=== PATIENT | female | born 1935 | race Caucasian/White ===

== ENCOUNTER → 2018-02-17 | Outpatient (CLI) | payer MEDICARE, BC ==
[~2018-02-17] MED LIST: 00186-0370-20 IH; ASPIR-LOW81 MG PO; ASPIRIN 81M81 MG/TA2 PO; LUTEIN20 MG PO; NO HOME MEDICATIONS; NORCO 325 MG-51 TAB PO; ONE DAILY1 TA2 PO; PROAIR HFA0.09 MG/AC IH; RT SPIRIVA18 MCG IH; SINGULAIR 110 MG/TAB PO; VENTOLIN0.09 MG IH; VITAMIN D 400400 IU PO; VITAMIN D1000 IU PO; ZYRTEC 10MG10 MG PO
== END ==
LOC: COL.VAS 11:00
DX: I08.3 Combined rheumatic disorders of mitral, aortic and tricuspid valves (principal)

== ENCOUNTER → 2018-12-08 | Outpatient (CLI) | payer MEDICARE, BC | LOC: MC.RAD 14:12 | DX: Z12.31 Encounter for screening mammogram for malignant neoplasm of breast (principal) ==

== ENCOUNTER 2019-01-13 08:36 | Emergency (ER) | payer MEDICARE, BC ==
[~2019-01-13] VITALS: Ht 162.6 cm; Wt 65.9 kg
[2019-01-13 08:40] VITALS: TEMP 97.4
[2019-01-13 09:28] LABS: BASO # 0.1 (0.0-0.2); BASO % 0.9 % (0.0-2.0); EOS # 0.2 (0.0-0.7); EOS % 2.7 % (0-4.0); GRAN # 3.3 (1.4-6.5); GRAN % 59.3 % (42.2-75.2); HEMATOCRIT 44.2 % (37.0-47.0); HEMOGLOBIN 14.5 g/dl (12.5-16.0); LYMPH # 1.6 (1.2-3.4); LYMPH % 28.7 % (20.0-51.0); MEAN CELL VOLUME 92 fl (80.0-100.0); MEAN CORPUSCULAR HEMOGLOBIN 30 pg (27.0-31.0); MEAN CORPUSCULAR HGB CONC 33 g/dl (33.0-37.0); MEAN PLATELET VOLUME 8.3 fl (7.4-10.4); MONO # 0.4 (0.1-0.6); PLATELET COUNT 262 K/mm3 (130-400); REDCELL DISTRIBUTION WIDTH-CV 12.6 % (11.5-14.5)
[2019-01-13 09:41] LABS: ALANINE AMINOTRANSFERASE 13 U/L (9-52); ALKALINE PHOSPHATASE 75 U/L (50-136); ANION GAP 10 mmol/L (7-16); AST,SGOT 23 U/L (15-37); BILIRUBIN,TOTAL 0.5 mg/dL (0.0-1.0); BLOOD UREA NITROGEN 14 mg/dL (7-17); CALCIUM 9.3 mg/dL (8.4-10.2); CARBON DIOXIDE 25 mmol/L (22-30); CHLORIDE 103 mmol/L (98-107); CREATININE, serum 0.73 (0.52-1.25); GLUCOSE 100 mg/dL (74-106); POTASSIUM 3.9 mmol/L (3.4-5.0); SODIUM 138 mmol/L (137-145)
[2019-01-13 09:47] LABS: C-REACTIVE PROTEIN < 0.5 mg/dL (0.0-0.9)
[2019-01-13] MEDS ORDERED: PREDNISONE20 MG PO (10:02)
[2019-01-13] MEDS ORDERED: PROAIR HFA0.09 MG/AC IH (10:05)
[2019-01-13 10:25] VITALS: BP 157/88; PULSE 69
== END 2019-01-13 10:25 | disposition home or self-care (01) ==
LOC: COL.ER 08:36
PROVIDERS: Family Medicine
DX: J45.901 Unspecified asthma with (acute) exacerbation (principal)
CPT/HCPCS: J2930

== ENCOUNTER 2019-05-31 22:02 | Emergency (ER) | payer MEDICARE, BC ==
[~2019-05-31] VITALS: Ht 157.5 cm; Wt 63.6 kg
[~2019-05-31 22:02] MED LIST changes: +PREDNISONE20 MG PO
[2019-05-31 22:05] VITALS: TEMP 97.5
[2019-05-31 23:18] LABS: BASO # 0.1 (0.0-0.2); BASO % 0.6 % (0.0-2.0); EOS # 0.2 (0.0-0.7); EOS % 1.8 % (0-4.0); GRAN # 6.6 (1.4-6.5); GRAN % 70.1 % (42.2-75.2); HEMATOCRIT 43.8 % (37.0-47.0); HEMOGLOBIN 14.3 g/dl (12.5-16.0); MEAN CELL VOLUME 93 fl (80.0-100.0); MEAN CORPUSCULAR HEMOGLOBIN 31 pg (27.0-31.0); MEAN CORPUSCULAR HGB CONC 33 g/dl (33.0-37.0); MEAN PLATELET VOLUME 8.4 fl (7.4-10.4); MONO # 0.6 (0.1-0.6); MONO % 6.1 % (1.7-9.3); PLATELET COUNT 296 K/mm3 (130-400); RED BLOOD COUNT 4.69 M/mm3 (4.10-5.30); REDCELL DISTRIBUTION WIDTH-CV 12.6 % (11.5-14.5)
[2019-05-31 23:32] LABS: ALANINE AMINOTRANSFERASE 17 U/L (9-52); ALBUMIN 4.6 gm/dL (3.5-5.0); ALCOHOL(ethanol),MEDICAL 173 mg/dL; ALKALINE PHOSPHATASE 75 U/L (50-136); ANION GAP 12 mmol/L (7-16); AST,SGOT 33 U/L (15-37); BILIRUBIN,TOTAL 0.2 mg/dL (0.0-1.0); BLOOD UREA NITROGEN 18 mg/dL (7-17); CALCIUM 9.2 mg/dL (8.4-10.2); CARBON DIOXIDE 25 mmol/L (22-30); CHLORIDE 101 mmol/L (98-107); CREATININE, serum 0.79 (0.52-1.25); GLUCOSE 108 mg/dL (74-106); POTASSIUM 3.7 mmol/L (3.4-5.0); SODIUM 138 mmol/L (137-145); TOTAL PROTEIN 7.6 gm/dL (6.4-8.2)
[2019-05-31 23:41] LABS: C-REACTIVE PROTEIN < 0.5 mg/dL (0.0-0.9); TROPONIN-I < 0.012 ng/mL (0.000-0.035)
[2019-05-31 23:54] LABS: COLLECTION METHOD CLEAN CATCH
[2019-06-01 00:03] LABS: MUCOUS Present /lpf; PH 7 (5-8); SQUAMOUS EPITHELIAL None Seen /hpf; URINE APPEARANCE Clear; URINE BACTERIA None Seen /hpf; URINE BILIRUBIN Negative (NEGATIVE); URINE BLOOD Negative (NEGATIVE); URINE COLOR Straw; URINE GLUCOSE Negative (NEGATIVE); URINE KETONE Negative (NEGATIVE); URINE LEUKOCYTE ESTERASE Negative (NEGATIVE); URINE NITRATE Negative (NEGATIVE); URINE PROTEIN(semi-quant) Negative (NEGATIVE); URINE RBC 0-2 /hpf; URINE UROBILINOGEN Negative (NEGATIVE)
[2019-06-01 00:13] VITALS: BP 186/88; PULSE 81
== END 2019-06-01 00:13 | disposition left against medical advice (07) ==
LOC: COL.ER 22:02
PROVIDERS: Emergency Medicine
DX: S69.92XA Unspecified injury of left wrist, hand and finger(s), initial encounter (principal); R55 Syncope and collapse; M54.5 Low back pain; I10 Essential (primary) hypertension; J44.9 Chronic obstructive pulmonary disease, unspecified; W19.XXXA Unspecified fall, initial encounter
CPT/HCPCS: J7030

== ENCOUNTER → 2021-08-15 | Outpatient (CLI) | payer MEDICARE, BC | LOC: COL.RAD 12:53 | DX: M54.50 Low back pain, unspecified (principal); M25.551 Pain in right hip | CPT/HCPCS: G0260; J3301 ==

== ENCOUNTER → 2021-10-03 | Outpatient (RCR) | payer MEDICARE, BC | END | disposition home or self-care (01) | LOC: WSPT → WSC 09-23 15:00 → WSPT 09-26 15:00 | DX: M53.3 Sacrococcygeal disorders, not elsewhere classified (principal) ==

== ENCOUNTER 2021-11-01 15:00 | Outpatient (RCR) | payer MEDICARE, BC | END 2021-11-02 | disposition home or self-care (01) | LOC: WSC | DX: M53.3 Sacrococcygeal disorders, not elsewhere classified (principal) ==

== ENCOUNTER → 2021-11-04 | Outpatient (CLI) | payer MEDICARE, BC | LOC: MHCPAIN 12:48 | DX: M47.816 Spondylosis without myelopathy or radiculopathy, lumbar region (principal); M54.50 Low back pain, unspecified; M53.3 Sacrococcygeal disorders, not elsewhere classified ==

== ENCOUNTER → 2021-11-18 | Outpatient (CLI) | payer MEDICARE, BC | LOC: MHCPAIN 13:15 | DX: M47.816 Spondylosis without myelopathy or radiculopathy, lumbar region (principal); M54.50 Low back pain, unspecified; M53.3 Sacrococcygeal disorders, not elsewhere classified ==

== ENCOUNTER 2021-11-27 14:15 | Outpatient (RCR) | payer MEDICARE, BC | END 2021-12-03 | disposition home or self-care (01) | LOC: WSC | DX: M53.3 Sacrococcygeal disorders, not elsewhere classified (principal) ==

== ENCOUNTER 2021-12-26 09:00 | Outpatient (RCR) | payer MEDICARE, BC | END 2022-01-02 | disposition home or self-care (01) | LOC: WSC | DX: M53.3 Sacrococcygeal disorders, not elsewhere classified (principal) ==

== ENCOUNTER → 2022-01-15 | Outpatient (CLI) | payer MEDICARE, BC | LOC: MHCPAIN 13:45 | DX: M54.50 Low back pain, unspecified (principal); M79.662 Pain in left lower leg; M41.86 Other forms of scoliosis, lumbar region ==

== ENCOUNTER → 2022-01-15 | Outpatient (CLI) | payer MEDICARE, BC | LOC: COL.RAD 14:51 | DX: M41.86 Other forms of scoliosis, lumbar region (principal); M51.36 Other intervertebral disc degeneration, lumbar region; M47.816 Spondylosis without myelopathy or radiculopathy, lumbar region ==

== ENCOUNTER 2022-01-29 09:00 | Outpatient (RCR) | payer MEDICARE, BC | END 2022-02-02 | disposition home or self-care (01) | LOC: WSPT | DX: M53.3 Sacrococcygeal disorders, not elsewhere classified (principal) ==

== ENCOUNTER → 2022-02-14 | Outpatient (CLI) | payer MEDICARE, BC | LOC: WSC 12:54 → MHCPAIN 12:54 | DX: M54.50 Low back pain, unspecified (principal); M54.17 Radiculopathy, lumbosacral region; M79.2 Neuralgia and neuritis, unspecified | CPT/HCPCS: G0463 ==

== ENCOUNTER → 2022-02-26 | Outpatient (CLI) | payer MEDICARE, BC | LOC: MHCPAIN 14:34 | DX: M79.18 Myalgia, other site (principal); M54.50 Low back pain, unspecified | CPT/HCPCS: J3301 ==

== ENCOUNTER 2022-02-27 12:45 | Outpatient (RCR) | payer MEDICARE, BC | END 2022-03-05 | disposition home or self-care (01) | LOC: WSC | DX: M53.3 Sacrococcygeal disorders, not elsewhere classified (principal) ==

== ENCOUNTER → 2022-03-12 | Outpatient (CLI) | payer MEDICARE, BC | LOC: MHCPAIN 14:33 | DX: M54.50 Low back pain, unspecified (principal); M70.61 Trochanteric bursitis, right hip | CPT/HCPCS: G0463; J3301 ==

== ENCOUNTER → 2022-04-22 | Outpatient (CLI) | payer MEDICARE, BC | LOC: MHCPAIN 13:30 | DX: M54.50 Low back pain, unspecified (principal); M70.61 Trochanteric bursitis, right hip; R25.2 Cramp and spasm | CPT/HCPCS: G0463 ==

== ENCOUNTER 2022-04-30 11:15 | Outpatient (RCR) | payer MEDICARE, BC | END 2022-05-05 | disposition home or self-care (01) | LOC: WSPT | DX: M53.3 Sacrococcygeal disorders, not elsewhere classified (principal); M54.50 Low back pain, unspecified ==

== ENCOUNTER → 2022-08-12 | Outpatient (CLI) | payer MEDICARE, BC | LOC: MHCPAIN 14:08 | DX: M54.50 Low back pain, unspecified (principal); R25.2 Cramp and spasm | CPT/HCPCS: G0463 ==

== ENCOUNTER → 2022-10-30 | Outpatient (CLI) | payer MEDICARE, BC | LOC: MHCPAIN 12:22 | DX: M47.816 Spondylosis without myelopathy or radiculopathy, lumbar region (principal); M54.16 Radiculopathy, lumbar region | CPT/HCPCS: J1100; Q9967 ==

== ENCOUNTER → 2023-12-30 | Outpatient (CLI) | payer MEDICARE, BC | LOC: MHCPAIN 10:56 | DX: M54.50 Low back pain, unspecified (principal); M54.16 Radiculopathy, lumbar region; R25.2 Cramp and spasm; M41.80 Other forms of scoliosis, site unspecified | CPT/HCPCS: G0463 ==

== ENCOUNTER → 2023-12-30 | Outpatient (CLI) | payer MEDICARE, BC ==
[~2023-12-30] MED LIST changes: +NORVASC 5MG5 MG/TAB PO; +ZOFRAN ODT4 MG PO
== END ==
LOC: COL.RAD 12:33
DX: M16.0 Bilateral primary osteoarthritis of hip (principal); M79.89 Other specified soft tissue disorders

== ENCOUNTER → 2023-12-30 | Outpatient (CLI) | payer MEDICARE, BC | LOC: COL.RAD 09:54 | DX: M51.36 Other intervertebral disc degeneration, lumbar region (principal); M48.56XA Collapsed vertebra, not elsewhere classified, lumbar region, initial encounter for fracture; M41.86 Other forms of scoliosis, lumbar region ==

== ENCOUNTER → 2024-01-04 | Outpatient (CLI) | payer MEDICARE, BC ==
[~2024-01-04] MED LIST changes: +Lidocaine PF 1% (10 MG/ML) 5 ML VIAL ONE; -NORVASC 5MG5 MG/TAB PO; +Triamcinolone 40 MG/ML 1 ML VIAL ONE; -ZOFRAN ODT4 MG PO
== END ==
LOC: MHCPAIN 09:59
DX: M70.62 Trochanteric bursitis, left hip (principal)
CPT/HCPCS: J3301

== ENCOUNTER → 2024-01-11 | Outpatient (CLI) | payer MEDICARE ==
[~2024-01-11] MED LIST changes: -Lidocaine PF 1% (10 MG/ML) 5 ML VIAL ONE; -Triamcinolone 40 MG/ML 1 ML VIAL ONE
== END ==
LOC: COL.RAD 16:13
DX: M51.36 Other intervertebral disc degeneration, lumbar region (principal); M51.37 Other intervertebral disc degeneration, lumbosacral region; M43.17 Spondylolisthesis, lumbosacral region; M48.061 Spinal stenosis, lumbar region without neurogenic claudication; M41.86 Other forms of scoliosis, lumbar region

== ENCOUNTER 2024-02-05 09:03 | Emergency (ER) | payer MEDICARE, BC ==
[~2024-02-05] VITALS: Ht 157.5 cm; Wt 63.6 kg
[2024-02-05 09:06] VITALS: TEMP 97.9
[2024-02-05] MEDS ORDERED: Ondansetron 4 MG/2 ML VIAL IV ONE ×2 (09:45→12:30)
[2024-02-05] MEDS ORDERED: fentaNYL 50 MCG/ML 2 ML VIAL IV ONE ×2 (09:45→12:00)
[2024-02-05 09:52] LABS: HEMATOCRIT 39.5 % (37.0-47.0); HEMOGLOBIN 13.7 g/dl (12.5-16.0); MEAN CELL VOLUME 90 fl (80.0-100.0); MEAN CORPUSCULAR HEMOGLOBIN 31 pg (27-31); MEAN CORPUSCULAR HGB CONC 35 g/dl (33.0-37.0); MEAN PLATELET VOLUME 9.2 fl (7.4-10.4); PLATELET COUNT 336 K/mm3 (130-400); RED BLOOD COUNT 4.37 M/mm3 (4.10-5.30); REDCELL DISTRIBUTION WIDTH-CV 12.3 % (11.5-14.5)
[2024-02-05] MEDS ORDERED: Losartan 50 MG TAB PO ONE (10:00)
[2024-02-05 10:07] LABS: ALANINE AMINOTRANSFERASE 15 U/L (0-55); ALBUMIN 4.2 g/dL (3.4-4.8); ALKALINE PHOSPHATASE 94 U/L (40-150); ANION GAP 14 mmol/L (7-16); AST,SGOT 24 U/L (5-34); BILIRUBIN,TOTAL 0.6 mg/dL (0.2-1.2); BLOOD UREA NITROGEN 15 mg/dL (10-20); CALCIUM 10.7 mg/dL (8.4-10.2); CHLORIDE 97 mEq/L (98-107); CREATININE, serum 0.83 mg/dL (0.57-1.11); GLUCOSE 121 mg/dL (70-99); POTASSIUM 3.8 mEq/L (3.5-4.5); SODIUM 133 mEq/L (136-145); TOTAL PROTEIN 7.3 g/dl (6.2-8.1)
[2024-02-05 10:15] LABS: TROPONIN-I < 0.010 ng/mL (0.00-0.033)
[2024-02-05] MEDS ORDERED: hydrALAZINE 20 MG/ML 1 ML VIAL IV ONE (12:45)
[2024-02-05] MEDS ORDERED: Carvedilol 6.25 MG TAB PO ONE (13:30)
[2024-02-05] MEDS ORDERED: ZOFRAN ODT4 MG PO (14:12)
[2024-02-05] MEDS ORDERED: NORVASC 5MG5 MG/TAB PO (14:13)
[2024-02-05 14:27] VITALS: BP 178/74; PULSE 64
== END 2024-02-05 14:30 | disposition home or self-care (01) ==
LOC: COL.ER 09:03
PROVIDERS: Family Medicine
DX: R11.0 Nausea (principal); T42.6X5A Adverse effect of other antiepileptic and sedative-hypnotic drugs, initial encounter; I16.0 Hypertensive urgency
CPT/HCPCS: J0360; J0780; J2405; J3010

== ENCOUNTER → 2024-03-17 | Outpatient (CLI) | payer MEDICARE, BC ==
[~2024-03-17] MED LIST changes: +NORVASC 5MG5 MG/TAB PO; +ZOFRAN ODT4 MG PO
== END ==
LOC: MHCPAIN 10:26
DX: M54.50 Low back pain, unspecified (principal); M54.16 Radiculopathy, lumbar region; M41.86 Other forms of scoliosis, lumbar region
CPT/HCPCS: G0463